=== PATIENT | male | born 1940 | race Caucasian/White ===

== ENCOUNTER 2019-06-26 22:36 | Emergency (ER) | payer MEDICARE, OTHER ==
[~2019-06-26] VITALS: Ht 172.7 cm; Wt 83.4 kg
[2019-06-26 22:41] VITALS: BP 168/74; PULSE 65; RESP 18; Ht 172.7 cm; Wt 83.4 kg
== END 2019-06-27 02:24 | disposition home or self-care (01) ==
LOC: FTE 22:36
DX: S09.90XA Unspecified injury of head, initial encounter (principal); I10 Essential (primary) hypertension; R51 Headache; W22.8XXA Striking against or struck by other objects, initial encounter; Y92.34 Swimming pool (public) as the place of occurrence of the external cause; Z98.61 Coronary angioplasty status
CPT/HCPCS: 70450; 72125